=== PATIENT | male | born 2000 | race Caucasian/White ===

== ENCOUNTER 2018-04-02 01:48 | Emergency (ER) | payer BC ==
[2018-04-02 02:18] VITALS: BP 149/91; PULSE 83; TEMP 98.1; BMI 23.5
[2018-04-02 02:52] LABS: HEMOGLOBIN 15.1 GM/dL (11.7-16.9); MCH 30.6 pg (25.7-33.7); MCHC 33.5 g/dl (32.0-35.9); MEAN CELL VOLUME 91.3 fl (80-96); MEAN PLT VOLUME 8.8 fl (7.5-11.1); PLATELET COUNT 194 K/MM3 (134-434); RBC 4.93 M/mm3 (4.00-5.60); RDW 13.5 % (11.9-15.9); WHITE BLOOD COUNT 5.9 K/mm3 (4.0-10.0)
--- NOTE | 2018-04-02 03:40 | PDOC ---
History of Present Illness - General Chief Complaint: Chest Pain Stated Complaint: SOB,CHEST PAIN Time Seen by Provider: 04/02/18 02:01 History Source: Patient Exam Limitations: No Limitations - History of Present Illness Initial Comments: 04/02/18 03:33 Patient is a 17-year-old male with no past medical history here with complaint of chest pain which started tonight. Patient states that he was in bed and he felt "constriction in his chest". He then felt for a pulse couldn't feel his pulse. Then his adrenaline shaver in, had heart racing and was breathing hard and fast. Patient states that he was smoking marijuana prior to the event. States he uses marijuana pretty often but this has never happened. Reports that 3 weeks ago he had 2 similar episodes of which she describes as twitching in his left chest, with possible low or high blood pressure. Could not feel his pulse then. He did not have these episodes evaluated but when it happened tonight he thought he would come in for evaluation. His symptoms are now resolved. Denies any chest pain, shortness of breath, nausea, vomiting. Family history negative for AK/CVA/DVT/PE, sudden . He has had no recent travel. He was full-term with no complications at , up-to-date with vaccines. PMD: Dr. Webb PMHX: Negative PSOCHX: (+) etoh, (+) MJ, (-) cig ALL: NKDA GENERAL/CONSTITUTIONAL: [No fever or chills. No weakness. No weight change.] HEAD, EYES, EARS, NOSE AND THROAT: [No change in vision. No ear pain or discharge. No sore throat.] CARDIOVASCULAR: [No chest pain or shortness of breath.] RESPIRATORY: [No cough, wheezing, or hemoptysis.] GASTROINTESTINAL: [No nausea, vomiting, diarrhea or constipation. No rectal bleeding.] GENITOURINARY: [No dysuria, frequency, or change in urination.] MUSCULOSKELETAL: [No joint or muscle swelling or pain. No neck or back pain.] SKIN AND BREASTS: [No rash or easy bruising.] NEUROLOGIC: [No headache, vertigo, loss of consciousness, or loss of sensation.] PSYCHIATRIC: [No depression or anxiety.] ENDOCRINE: [No increased thirst. No abnormal weight change.] HEMATOLOGIC/LYMPHATIC: [No anemia, easy bleeding, or history of blood clots.] ALLERGIC/IMMUNOLOGIC: [No hives or skin allergy. No latex allergy.] GENERAL: [The patient is awake, alert, and fully oriented, in no acute distress. ] HEAD: [Normal with no signs of trauma.] EYES: [Pupils equal, round and reactive to light, extraocular movements intact, sclera anicteric, conjunctiva clear.] ENT: [Ears normal, nares patent, oropharynx clear without exudates. Moist mucous membranes.] NECK: [Normal range of motion, supple without lymphadenopathy, JVD, or masses.] LUNGS: [Breath sounds equal, clear to auscultation bilaterally. No wheezes, and no crackles.] HEART: [Regular rate and rhythm, normal S1 and S2 without murmur, rub.] ABDOMEN: [Soft, nontender, normoactive bowel sounds. No guarding, no rebound. No masses.] EXTREMITIES: [Normal range of motion, no edema. No clubbing or cyanosis. No cords, erythema, or tenderness.] NEUROLOGICAL: [Cranial nerves II through XII grossly intact. Normal speech, normal gait.] PSYCH: [Normal mood, normal affect.] SKIN: [Warm, Dry, normal turgor, no rashes or lesions noted.] Past History - Past Medical History Allergies/Adverse Reactions: Allergies Allergy/AdvReac Type Severity Reaction Status Date / Time No Known Allergies Allergy Verified 04/02/18 02:12 Home Medications: Ambulatory Orders NK [No Known Home Medication] 03/12/16 COPD: No Other medical history: ADHD - Suicide/Smoking/Psychosocial Hx Smoking History: Never smoked Have you smoked in the past 12 months: No Information on smoking cessation initiated: No Hx Alcohol Use: No Drug/Substance Use Hx: No Substance Use Type: None *Physical Exam - Vital Signs Last Vital Signs Temp Pulse Resp BP Pulse Ox 98.1 F 83 18 149/91 98 04/02/18 02:12 04/02/18 02:12 04/02/18 02:12 04/02/18 02:12 04/02/18 02:12 ED Treatment Course - LABORATORY CBC & Chemistry Diagram: 04/02/18 02:46 04/02/18 02:46 - ADDITIONAL ORDERS Additional order review: Laboratory Results 04/02/18 02:46 Sodium 138 Potassium 4.5 Chloride 104 Carbon Dioxide 27 Anion Gap 7 L BUN 18 Creatinine 1.1 Creat Clearance w eGFR > 60 Random Glucose 116 H Calcium 9.1 Creatine Kinase 112 Troponin I < 0.02 04/02/18 02:46 RBC 4.93 MCV 91.3 MCHC 33.5 RDW 13.5 MPV 8.8 - RADIOLOGY Radiology Studies Ordered: Category Date Time Status CHEST PA & LAT [RAD] Stat Radiology 04/02/18 02:35 Taken Medical Decision Making - Medical Decision Making 04/02/18 03:33 Patient is a 17-year-old male with no past medical history here with complaint of chest pain which started tonight. Patient states that he was in bed and he felt "constriction in his chest". He then felt for a pulse couldn't feel his pulse. Patient is PERC negative Symptoms are consistent with possible panic attack Will get EKG, troponin 1, chest x-ray. Discharge if negative. Chest x-ray negative EKG: A saw at 86, NAD, no ST-T wave changes No acute findings on laboratory work, troponin negative I discussed the physical exam findings, ancillary test results and final diagnoses with the patient. I answered all of the patient's questions. The patient was satisfied with the care received and felt comfortable with the discharge plan and treatment plan. The Patient agrees to follow up with the primary care physician within 24-72 hours. *DC/Admit/Observation/Transfer Diagnosis at time of Disposition: Chest pain Qualifiers: Chest pain type: other chest pain Qualified Code(s): R07.89 - Other chest pain - Discharge Dispostion Disposition: HOME Condition at time of disposition: Stable - Referrals Referrals: Francisco García [Primary Care Provider] - - Patient Instructions Printed Discharge Instructions: DI for Atypical Chest Pain Additional Instructions: Your Discharge Instructions: You must call primary care physician within 24 hours to arrange follow-up. Return to the Emergency Department with any new, persistent or worsening symptoms, for fever, chills, SOB, dizziness or any other concerning changes that may occur. - Post Discharge Activity
[2018-04-02 03:42] LABS: ANION GAP 7 MMOL/L (8-16); BLOOD UREA NITROGEN 18 mg/dL (7-18); CALCIUM 9.1 mg/dL (8.5-10.1); CHLORIDE 104 mmol/L (98-107); CO2 27 mmol/L (21-32); CREATININE 1.1 mg/dL (0.55-1.3); GLUCOSE,RANDOM 116 mg/dL (74-106); POTASSIUM 4.5 mmol/L (3.5-5.1); SODIUM 138 mmol/L (136-145)
--- NOTE | 2018-04-02 18:28 | EKG ---
Test Reason : Blood Pressure : / mmHG Vent. Rate : 086 BPM Atrial Rate : 086 BPM P-R Int : 164 ms QRS Dur : 090 ms QT Int : 336 ms P-R-T Axes : 073 028 048 degrees QTc Int : 402 ms NORMAL SINUS RHYTHM NORMAL ECG WHEN COMPARED WITH ECG OF 12-MAR-2016 12:50, NO SIGNIFICANT CHANGE WAS FOUND Confirmed by STACEY SOLANO MD ([id number]) on 04/02/2018 6:28:16 PM Referred By: Confirmed By:STACEY SOLANO MD
== END 2018-04-02 03:54 | disposition home or self-care (01) ==
LOC: JER 01:48
DX: R07.89 Other chest pain (principal); F12.90 Cannabis use, unspecified, uncomplicated
CPT/HCPCS: 36415; 71046-TC-FY; 80048; 82550; 84484; 85027; 93005; 93010; 99283-25